=== PATIENT | female | born 1980 | race Caucasian/White ===

== ENCOUNTER → 2017-03-27 08:32 | Outpatient (CLI) | payer BC ==
[2014-02-02 09:56] VITALS: BMI 27.3
[~2017-03-27 08:32] MED LIST: ATIVAN0.5 MG PO; CELEXA20 MG PO; CYCLOBENZAPRINE10 MG PO; PREVACID15 MG PO; TOPAMAX50 MG PO; VICOPROFEN 7.5/1 TAB PO; ZENCHENT FE TA1 EACH PO
== END | disposition home or self-care (01) ==
LOC: D.MRI 03-26 13:00
DX: M54.16 Radiculopathy, lumbar region (principal)

== ENCOUNTER → 2017-06-18 14:33 | Outpatient (CLI) | payer BC ==
[2014-02-02 09:56] VITALS: BMI 27.3
[2017-06-18 16:05] LABS: ERYTHROCYTE SEDIMENTATION RATE 7 mm/hr (0-20)
== END | disposition home or self-care (01) ==
LOC: D.LAB 14:30 → D.MRI 15:30
PROVIDERS: Psychiatry & Neurology Neurology
DX: G83.9 Paralytic syndrome, unspecified (principal); M47.12 Other spondylosis with myelopathy, cervical region

== ENCOUNTER → 2017-06-20 08:43 | Outpatient (CLI) | payer BC ==
[2014-02-02 09:56] VITALS: BMI 27.3
[2017-06-20 12:39] LABS: GLUCOSE - CSF 68 MG/DL (40-75); PROTEIN - CSF 31 MG/DL (12-60)
[2017-06-20 14:05] LABS: LYMPH - CSF 96 % (40-80); MONO - CSF 2 % (15-45); NEUT - CSF 2 % (0-6)
[2017-06-20 14:06] LABS: APPEARANCE - CSF COLORLESS; RBC - CSF 28 cmm (0-0)
[2017-06-21 04:14] LABS: RAPID PLASMA REAGIN Non Reactive (Non Reactive)
[2017-06-21 19:08] LABS: AFB SPECIMEN PROCESSING Not Indicated (())
[2017-06-23 10:11] LABS: FUNGUS STAIN Final report (())
[2017-06-23 13:12] LABS: WNVS - IGG Negative (Negative); WNVS - IGM Negative (Negative)
[2017-06-23 15:18] LABS: EHRLICHIA CHAFF IGG Negative (Neg:<1:64); EHRLICHIA CHAFF IGM Negative (Neg:<1:20); HGE IGG TITER Negative (Neg:<1:64); HGE IGM TITER Negative (Neg:<1:20)
[2017-06-23 16:12] LABS: IGGS - IGG INDEX CSF 1.8 (0.0-0.7); IGGS - IGG SYNTHESIS RATE CSF 11.2 mg/day (-9.9 TO +3.3)
[2017-07-18 12:16] LABS: FUNGUS MYCOLOGY CULTURE Final report (())
[2017-08-11 19:07] LABS: ACID FAST CULTURE Negative (()); ACID FAST SMEAR Negative (())
== END | disposition home or self-care (01) ==
LOC: D.OPS 08:43 → D.RAD 09:00 → D.OPS 09:00
PROVIDERS: Psychiatry & Neurology Neurology
DX: M47.26 Other spondylosis with radiculopathy, lumbar region (principal); Z01.812 Encounter for preprocedural laboratory examination

== ENCOUNTER 2019-06-30 09:00 | Outpatient (CLI) | payer MEDICAID ==
[2014-02-02 09:56] VITALS: BMI 27.3
== END 2019-06-30 10:00 | disposition home or self-care (01) ==
LOC: D.MAMMO 09:00
PROVIDERS: ATTEND Nurse Practitioner Women's Health
DX: Z12.31 Encounter for screening mammogram for malignant neoplasm of breast (principal)